=== PATIENT | male | born 1955 | race Caucasian/White ===

== ENCOUNTER 2019-05-17 14:15 | Emergency (ER) | payer SELFPAY ==
[2019-05-17] MEDS ORDERED: predniSONE 20 MG TAB ONE (15:01)
[2019-05-17] MEDS ORDERED: Ketorolac Tromethamine 30 MG/ML VIAL ONE (15:01)
== END 2019-05-17 15:15 | disposition home or self-care (01) ==
LOC: BURERS 14:15
DX: S33.5XXA Sprain of ligaments of lumbar spine, initial encounter (principal); I10 Essential (primary) hypertension; F41.9 Anxiety disorder, unspecified; F17.210 Nicotine dependence, cigarettes, uncomplicated; Z79.899 Other long term (current) drug therapy; X58.XXXA Exposure to other specified factors, initial encounter
CPT/HCPCS: 96372; 99283; J1885; J7512

== ENCOUNTER 2023-12-26 15:14 | Emergency (ER) | payer MEDICARE, SELFPAY ==
[2023-12-26] MEDS ORDERED: Ibuprofen 800 MG TAB ONE (15:33)
== END 2023-12-26 16:28 | disposition home or self-care (01) ==
LOC: BURERS 15:14
DX: S93.601A Unspecified sprain of right foot, initial encounter (principal); I10 Essential (primary) hypertension; F17.210 Nicotine dependence, cigarettes, uncomplicated; W22.09XA Striking against other stationary object, initial encounter; Y93.89 Activity, other specified
CPT/HCPCS: 99283